=== PATIENT | male | born 1965 | race Caucasian/White ===

== ENCOUNTER 2023-11-26 21:52 | Inpatient (IN) | payer BC ==
[~2023-11-26] VITALS: Ht 175.3 cm; Wt 111.1 kg
[2023-11-26] MEDS ORDERED: ONDANSETRON HCL/PF 4 MG/2 ML VIAL ONE (22:30)
[2023-11-26] MEDS ORDERED: MORPHINE SULFATE INJ 4 MG/ML DISP.SYRIN ONE (22:30)
[2023-11-26] MEDS: IV NS 0.9% 1,000 ML BAG IV ONE (22:31)
[2023-11-26] MEDS: MORPHINE SULFATE INJ 2 MG/ML DISP.SYRIN IV ONE (22:31)
[2023-11-26] MEDS: ONDANSETRON HCL/PF 4 MG/2 ML VIAL IVP ONE (22:31)
[2023-11-26 22:35] LABS: BASOPHILS # (AUTO) 0.1 K/uL (0.0-0.2); BASOPHILS % (AUTO) 0.8 % (0.0-2.0); EOSINOPHILS # (AUTO) 0.3 K/uL (0.0-0.7); EOSINOPHILS % (AUTO) 2.3 % (0.0-6.0); HEMATOCRIT 43 % (39-51); HEMOGLOBIN 14.4 g/dL (13.5-17.5); LYMPHOCYTES # (AUTO) 2.9 K/uL (0.8-4.8); LYMPHOCYTES % (AUTO) 20.8 % (20.0-44.0); MEAN CORPUSCULAR HEMOGLOBIN 28 PG (26.0-33.0); MEAN CORPUSCULAR HGB CONC 34 g/dl (31.0-36.0); MEAN CORPUSCULAR VOLUME 82 fL (80-96); MONOCYTES # (AUTO) 0.8 K/uL (0.1-1.30); MONOCYTES % (AUTO) 5.9 % (2.0-12.0); NEUTROPHILS # (AUTO) 9.6 K/uL (1.8-8.9); NEUTROPHILS % (AUTO) 70.2 % (43.0-81.0); PLATELET COUNT (AUTO) 216 K/uL (150-450); RED BLOOD CELL COUNT(AUTO) 5.19 MIL/uL (4.5-6.0); WHITE BLOOD COUNT (AUTO) 13.7 K/uL (4.3-11.0)
[2023-11-26 22:41] LABS: CALCIUM, SERUM 8.8 mg/dL (8.5-10.1); CARBON DIOXIDE 27 mmol/L (21-32); CHLORIDE 97 mmol/L (98-107); CREATININE 0.9 mg/dL (0.6-1.3); GLUCOSE 239 mg/dL (74-106); POTASSIUM 4.1 mmol/L (3.5-5.1); SODIUM SERUM 136 mmol/L (136-145); UREA NITROGEN, BLOOD 15 mg/dL (7-18)
[2023-11-26 22:47] LABS: ALANINE AMINOTRANSFERASE 41 U/L (12-78); ALKALINE PHOSPHATASE 65 U/L (46-116); ASPARTATE AMINOTRANSFERASE 15 U/L (15-37); BILIRUBIN,DIRECT 0.1 mg/dL (0.0-0.2); BILIRUBIN,TOTAL 0.5 mg/dL (0.2-1.0); TOTAL PROTEIN, SERUM 7.1 g/dL (6.4-8.2)
[2023-11-26 22:48] LABS: LIPASE > 375 U/L (16-77)
[2023-11-27] MEDS ORDERED: MORPHINE SULFATE INJ 4 MG/ML DISP.SYRIN ONE (00:27)
[2023-11-27] MEDS: MORPHINE SULFATE INJ 2 MG/ML DISP.SYRIN IV ONE (00:28)
[2023-11-27] MEDS: IV NS 0.9% 1,000 ML IV PRN (00:28)
[2023-11-27] MEDS ORDERED: MAGNESIUM HYDROXIDE 30 ML UDC PO PRN (00:30)
[2023-11-27] MEDS ORDERED: DEXTROSE 50%-WATER 50 ML DISP.SYRIN IV PRN (00:30)
[2023-11-27] MEDS ORDERED: MAG HYDROX/AL HYDROX/SIMETH 30 ML UDC PO PRN (00:30)
[2023-11-27] MEDS ORDERED: ACETAMINOPHEN 325 MG TABLET PO PRN (00:30)
[2023-11-27] MEDS ORDERED: ZOLPIDEM TARTRATE 5 MG TABLET PO PRN (00:30)
[2023-11-27] MEDS ORDERED: Z GUARD REMEDY 4 OZ OINT TP PRN (00:30)
[2023-11-27 02:15] VITALS: BP 171/90; TEMP 97.7; O2SAT 94
[2023-11-27 02:30] VITALS: BP 171/90; TEMP 97.7; O2SAT 94
[2023-11-27] MEDS: IV 1/2NS 1000 ML 1,000 ML IV PRN (02:41)
[2023-11-27] MEDS: MORPHINE SULFATE INJ 2 MG/ML DISP.SYRIN IV PRN (04:29)
[2023-11-27 06:09] VITALS: BP 136/89
[2023-11-27] MEDS: BLOOD SUGAR DIAGNOSTIC 1 EACH STRIP IN SCH (06:09)
[2023-11-27] MEDS: INSULIN REGULAR, HUMAN 100 UNIT/ML 3 ML VIAL SQ PRN (06:45)
[2023-11-27 08:00] VITALS: BP 140/89; TEMP 99; O2SAT 94
[2023-11-27] MEDS ORDERED: LISI10TA29 PO (08:10)
[2023-11-27] MEDS ORDERED: ASCO100058 PO (08:10)
[2023-11-27] MEDS ORDERED: CHOL100043 PO (08:10)
[2023-11-27] MEDS ORDERED: ROSU10TA2 PO (08:10)
[2023-11-27] MEDS ORDERED: GLYBURIDE-METFORMIN PO (08:10)
[2023-11-27] MEDS ORDERED: VIT1CAPS9 PO (08:10)
[2023-11-27] MEDS: ENOXAPARIN SODIUM 40 MG/0.4 ML DISP.SYRIN SQ SCH (08:45)
[2023-11-27] MEDS: PANTOPRAZOLE 40 MG VIAL IV SCH (09:12)
[2023-11-27] MEDS: IV D5/0.45 NACL 1,000 ML IV PRN (13:14)
[2023-11-27 16:00] VITALS: BP 143/86; TEMP 98.6; O2SAT 96
[2023-11-27 20:00] VITALS: BP 144/96; TEMP 99.5; O2SAT 96
[2023-11-27] MEDS: MEROPENEM 1 G in IV NS 0.9% 100 ML IV SCH (20:28)
[2023-11-27] MEDS: HYDROMORPHONE 1 MG/1 ML DISP.SYRIN IV PRN (20:29)
[2023-11-27] MEDS: ATORVASTATIN 40 MG TABLET PO SCH (22:00)
[2023-11-28 07:00] VITALS: BP 152/101; TEMP 98.1; O2SAT 95
[2023-11-28 07:03] LABS: BASOPHILS % (AUTO) 0.1 % (0.0-2.0); EOSINOPHILS % (AUTO) 0.1 % (0.0-6.0); HEMATOCRIT 38 % (39-51); HEMOGLOBIN 12.7 g/dL (13.5-17.5); LYMPHOCYTES % (AUTO) 7.6 % (20.0-44.0); MEAN CORPUSCULAR HEMOGLOBIN 28 PG (26.0-33.0); MEAN CORPUSCULAR HGB CONC 34 g/dl (31.0-36.0); MEAN CORPUSCULAR VOLUME 82 fL (80-96); MONOCYTES % (AUTO) 7.3 % (2.0-12.0); NEUTROPHILS # (AUTO) 11.3 K/uL (1.8-8.9); NEUTROPHILS % (AUTO) 84.9 % (43.0-81.0); PLATELET COUNT (AUTO) 173 K/uL (150-450); WHITE BLOOD COUNT (AUTO) 13.3 K/uL (4.3-11.0)
[2023-11-28 07:32] LABS: CALCIUM, SERUM 8.5 mg/dL (8.5-10.1); CARBON DIOXIDE 28 mmol/L (21-32); CHLORIDE 96 mmol/L (98-107); CREATININE 0.8 mg/dL (0.6-1.3); GLUCOSE 238 mg/dL (74-106); MAGNESIUM 2.1 mg/dL (1.8-2.4); PHOSPHORUS 2.3 mg/dL (2.5-4.9); SODIUM SERUM 132 mmol/L (136-145); UREA NITROGEN, BLOOD 11 mg/dL (7-18)
[2023-11-28 07:56] LABS: LIPASE > 375 U/L (16-77)
[2023-11-28 08:09] LABS: HEPATITIS B CORE AB, IgM Negative (Negative); HEPATITIS B CORE AB, TOTAL Negative (Negative); HEPATITIS B SURFACE AB Non Reactive (.); HEPATITIS Be AG Negative (Negative)
[2023-11-28] MEDS: LISINOPRIL (10MG) 10 MG TABLET PO SCH (08:28)
[2023-11-28] MEDS: SENNOSIDES 8.6 MG TABLET PO PRN (10:03)
[2023-11-28] MEDS: LACTULOSE 10 G/15 ML UDC (PYXIS) PO SCH (14:20)
[2023-11-28 16:00] VITALS: BP 144/86; TEMP 98.8; O2SAT 96
[2023-11-28 16:06] LABS: CHOLESTEROL 101 mg/dL (<200); HDL CHOLESTEROL 45 mg/dL (40-60); LDL 44 mg/dL (0-99); TRIGLYCERIDES 78 mg/dL (30-150)
[2023-11-28] MEDS: K PHOS NEUTRAL 250 MG TABLET PO ONE (16:19)
[2023-11-28] MEDS: ONDANSETRON HCL/PF 4 MG/2 ML VIAL IVP PRN (18:37)
[2023-11-28 20:00] VITALS: BP 140/78; TEMP 99.5; O2SAT 93
[2023-11-28 21:06] VITALS: BP 140/78; TEMP 99.5; O2SAT 93
[2023-11-29 07:30] VITALS: BP 146/79; TEMP 99.7; O2SAT 92
[2023-11-29 07:50] LABS: BASOPHILS % (AUTO) 0.2 % (0.0-2.0); EOSINOPHILS # (AUTO) 0.1 K/uL (0.0-0.7); HEMATOCRIT 36 % (39-51); HEMOGLOBIN 12.2 g/dL (13.5-17.5); LYMPHOCYTES # (AUTO) 0.9 K/uL (0.8-4.8); LYMPHOCYTES % (AUTO) 8.7 % (20.0-44.0); MEAN CORPUSCULAR HEMOGLOBIN 28 PG (26.0-33.0); MEAN CORPUSCULAR HGB CONC 34 g/dl (31.0-36.0); MEAN CORPUSCULAR VOLUME 82 fL (80-96); MONOCYTES % (AUTO) 8.8 % (2.0-12.0); NEUTROPHILS # (AUTO) 8.8 K/uL (1.8-8.9); NEUTROPHILS % (AUTO) 81.3 % (43.0-81.0); PLATELET COUNT (AUTO) 164 K/uL (150-450); RED BLOOD CELL COUNT(AUTO) 4.33 MIL/uL (4.5-6.0); RED CELL DISTRIBUTION WIDTH 12.7 % (11.5-15.0); WHITE BLOOD COUNT (AUTO) 10.9 K/uL (4.3-11.0)
[2023-11-29 08:01] LABS: CALCIUM, SERUM 8.5 mg/dL (8.5-10.1); CREATININE 0.7 mg/dL (0.6-1.3); MAGNESIUM 2.3 mg/dL (1.8-2.4); PHOSPHORUS 2.6 mg/dL (2.5-4.9); POTASSIUM 3.7 mmol/L (3.5-5.1)
[2023-11-29] MEDS: PANTOPRAZOLE 40 MG TABLET.DR PO SCH (08:49)
[2023-11-29] MEDS: HYDROCODONE/APAP 5/325MG TABLET PO PRN (12:34)
[2023-11-29 15:52] VITALS: BP 157/91; TEMP 99.1; O2SAT 94
[2023-11-29 20:00] VITALS: BP 143/70; TEMP 98.2; O2SAT 94
[2023-11-29] MEDS: ONDANSETRON HCL/PF 4 MG/2 ML VIAL IVP PRN (22:03)
[2023-11-30 06:28] LABS: BASOPHILS % (AUTO) 0.2 % (0.0-2.0); EOSINOPHILS # (AUTO) 0.1 K/uL (0.0-0.7); EOSINOPHILS % (AUTO) 0.8 % (0.0-6.0); HEMATOCRIT 35 % (39-51); LYMPHOCYTES # (AUTO) 0.7 K/uL (0.8-4.8); LYMPHOCYTES % (AUTO) 7.4 % (20.0-44.0); MEAN CORPUSCULAR HEMOGLOBIN 28 PG (26.0-33.0); MEAN CORPUSCULAR HGB CONC 34 g/dl (31.0-36.0); MEAN CORPUSCULAR VOLUME 82 fL (80-96); MONOCYTES % (AUTO) 9.8 % (2.0-12.0); NEUTROPHILS # (AUTO) 7.9 K/uL (1.8-8.9); NEUTROPHILS % (AUTO) 81.8 % (43.0-81.0); PLATELET COUNT (AUTO) 191 K/uL (150-450); RED BLOOD CELL COUNT(AUTO) 4.27 MIL/uL (4.5-6.0); WHITE BLOOD COUNT (AUTO) 9.7 K/uL (4.3-11.0)
[2023-11-30 06:46] LABS: CALCIUM, SERUM 8.5 mg/dL (8.5-10.1); CREATININE 0.8 mg/dL (0.6-1.3); MAGNESIUM 2.4 mg/dL (1.8-2.4); PHOSPHORUS 2.4 mg/dL (2.5-4.9); POTASSIUM 3.6 mmol/L (3.5-5.1)
[2023-11-30 07:30] VITALS: BP 151/99; TEMP 97.5; O2SAT 94
[2023-11-30 08:10] LABS: HEPATITIS Be AB Negative (Negative)
[2023-11-30] MEDS: BISACODYL SUPP (10 MG) 10 MG/SUPP.RECT SUPP.RECT RC PRN (12:21)
[2023-11-30] MEDS: NA PHOS,M-B/NA PHOS,DI-BA 1 EA ENEMA RC PRN (15:14)
[2023-11-30] MEDS: K PHOS NEUTRAL 250 MG TABLET PO ONE (15:21)
[2023-11-30 16:00] VITALS: BP 153/100; TEMP 98.6; O2SAT 94
[2023-11-30] MEDS ORDERED: LORAZEPAM INJ 2 MG/ML VIAL IV ONE (19:30)
[2023-11-30] MEDS: HYDROMORPHONE 1 MG/1 ML DISP.SYRIN IV ONE (19:35)
[2023-11-30] MEDS: IV LR 1000 ML 1,000 ML IV ONE (19:40)
[2023-11-30 20:00] VITALS: BP 134/85; TEMP 97.9; O2SAT 96
[2023-11-30] MEDS: LORAZEPAM 1 MG TABLET PO PRN (21:03)
[2023-12-01 07:00] VITALS: BP 137/82; TEMP 98.4; O2SAT 96
[2023-12-01 07:52] LABS: BASOPHILS % (AUTO) 0.2 % (0.0-2.0); EOSINOPHILS # (AUTO) 0.2 K/uL (0.0-0.7); EOSINOPHILS % (AUTO) 1.8 % (0.0-6.0); HEMATOCRIT 37 % (39-51); HEMOGLOBIN 12.4 g/dL (13.5-17.5); LYMPHOCYTES % (AUTO) 12.4 % (20.0-44.0); MEAN CORPUSCULAR HEMOGLOBIN 28 PG (26.0-33.0); MEAN CORPUSCULAR HGB CONC 34 g/dl (31.0-36.0); MEAN CORPUSCULAR VOLUME 82 fL (80-96); MONOCYTES # (AUTO) 0.9 K/uL (0.1-1.30); MONOCYTES % (AUTO) 11.1 % (2.0-12.0); NEUTROPHILS # (AUTO) 6.2 K/uL (1.8-8.9); NEUTROPHILS % (AUTO) 74.5 % (43.0-81.0); PLATELET COUNT (AUTO) 245 K/uL (150-450); RED BLOOD CELL COUNT(AUTO) 4.51 MIL/uL (4.5-6.0); RED CELL DISTRIBUTION WIDTH 12.8 % (11.5-15.0); WHITE BLOOD COUNT (AUTO) 8.3 K/uL (4.3-11.0)
[2023-12-01 08:15] LABS: CALCIUM, SERUM 8.4 mg/dL (8.5-10.1); CREATININE 0.7 mg/dL (0.6-1.3); MAGNESIUM 2.3 mg/dL (1.8-2.4); PHOSPHORUS 2.6 mg/dL (2.5-4.9); POTASSIUM 3.6 mmol/L (3.5-5.1)
[2023-12-01] MEDS: SIMETHICONE 80 MG TAB.CHEW PO SCH (13:40)
[2023-12-01 16:00] VITALS: BP 137/90; TEMP 97.9; O2SAT 96
[2023-12-01] MEDS: IV LR 1000 ML 1,000 ML IV ONE (18:06)
[2023-12-01 20:00] VITALS: BP 169/95; TEMP 97.3; O2SAT 95
[2023-12-02 07:00] VITALS: BP 160/94; TEMP 97.3; O2SAT 95
[2023-12-02 16:00] VITALS: BP 187/86; TEMP 98.4; O2SAT 92
[2023-12-02] MEDS ORDERED: LORA2TAB95 PO (18:31)
[2023-12-02] MEDS ORDERED: SIME180C47 PO (18:31)
[2023-12-02] MEDS ORDERED: POLY17PO4 PO (18:31)
[2023-12-02 18:41] VITALS: BP 140/70
[2023-12-02] MEDS: hydrALAZINE HCL 50 MG TABLET PO ONE (18:41)
[2023-12-02] MEDS ORDERED: ALBU8.5H8 INH (18:46)
== END 2023-12-02 23:11 | disposition home or self-care (01) | DRG 439 ==
LOC: ER 21:59 → MED 11-27 01:10
PROVIDERS: ADMIT Nurse Practitioner Acute Care; ATTEND Nurse Practitioner Acute Care
DX: K85.00 Idiopathic acute pancreatitis without necrosis or infection (principal); K56.7 Ileus, unspecified; L03.116 Cellulitis of left lower limb; E11.9 Type 2 diabetes mellitus without complications; I10 Essential (primary) hypertension; E78.5 Hyperlipidemia, unspecified; Z98.890 Other specified postprocedural states; Z79.899 Other long term (current) drug therapy; Z79.84 Long term (current) use of oral hypoglycemic drugs; D72.829 Elevated white blood cell count, unspecified; K59.00 Constipation, unspecified; T40.2X5A Adverse effect of other opioids, initial encounter; Y92.9 Unspecified place or not applicable; K76.0 Fatty (change of) liver, not elsewhere classified; Z80.6 Family history of leukemia; Z83.3 Family history of diabetes mellitus; Z88.0 Allergy status to penicillin
CPT/HCPCS: 36415; 71045-TC; 80048-TC; 80061-TC; 80076-TC; 82962-TC; 83690-TC; 83735-TC; 84100-TC; 84484-TC; 85025-TC; 86704; 86705; 86706; 86707; 86803; 87081-TC; 87340; 87350; A4223; C9113; G0378; J1170; J1650; J1815; J2185; J2270; J2405; J3490; J7030; J7120